=== PATIENT | male | born 1985 | race Caucasian/White ===

== ENCOUNTER 2020-03-10 21:55 | Inpatient (IN) | payer MEDICAID, SELFPAY ==
[~2020-03-10] VITALS: Ht 182.9 cm; Wt 87.3 kg
[2020-03-10 22:28] LABS: BASO # 0.1 10^3/uL (0.0-0.2); BASO % 0.2 % (0.0-1.0); HEMATOCRIT 42.9 % (42.0-52.0); HEMOGLOBIN 14.5 g/dl (13.5-17.5); LYMPH % 4.8 % (24.0-44.0); MEAN CORPUSCULAR HEMOGLOBIN 30.6 pg (27.0-33.0); MEAN CORPUSCULAR HGB CONC 33.8 g/dl (32.0-36.5); MEAN CORPUSCULAR VOLUME 90.5 fl (80.0-96.0); MONO # 1.1 10^3/uL (0.0-0.8); MONO % 4.9 % (0.0-5.0); NEUTROPHILS # 19.2 10^3/uL (1.5-8.5); NEUTROPHILS % 89.5 % (36.0-66.0); PLATELET COUNT, AUTOMATED 240 10^3/uL (150-450); RED BLOOD COUNT 4.74 10^6/uL (4.30-6.10); WHITE BLOOD COUNT 21.5 10^3/uL (4.0-10.0)
[2020-03-10] MEDS ORDERED: ONDANSETRON 4MG/2ML VIAL IV ONE (22:30)
[2020-03-10 22:57] LABS: ALBUMIN 4.7 GM/DL (3.2-5.2); BILIRUBIN,DIRECT 0.3 MG/DL (0.0-0.2); BILIRUBIN,TOTAL 1.3 MG/DL (0.2-1.0); TOTAL PROTEIN 8.1 GM/DL (6.4-8.2)
[2020-03-10] MEDS ORDERED: NS 1,000 ML IV ONE (23:00)
[2020-03-10] MEDS ORDERED: ISOVUE-370 76% 100ML VIAL As Ordered ONE (23:00)
[2020-03-10] MEDS ORDERED: KETOROLAC 30 MG/ML 1ML VIAL IV ONE (23:00)
[2020-03-10] MEDS ORDERED: METOCLOPRAMIDE INJ 10MG/2ML VIAL (J2765 PER 1) IV ONE (23:15)
--- NOTE | 2020-03-10 23:45 | REPVR ---
PROCEDURE INFORMATION: Exam: CT Abdomen And Pelvis With Contrast Exam date and time: 03/10/2020 10:53 PM Age: 34 years old Clinical indication: Vomiting; Additional info: Abd pain with n/v R/O infectious process TECHNIQUE: Imaging protocol: Computed tomography of the abdomen and pelvis with intravenous contrast. Radiation optimization: All CT scans at this facility use at least one of these dose optimization techniques: automated exposure control; mA and/or kV adjustment per patient size (includes targeted exams where dose is matched to clinical indication); or iterative reconstruction. Contrast material: ISO; Contrast volume: 100 ml; Contrast route: INTRAVENOUS (IV); COMPARISON: CT ABD PELVIS WITH CONTRAST 10/08/2015 12:22 PM FINDINGS: Liver: Normal. No mass. Gallbladder and bile ducts: Normal. No calcified stones. No ductal dilation. Pancreas: Normal. No ductal dilation. Spleen: Normal. No splenomegaly. Adrenals: Normal. No mass. Kidneys and ureters: Normal. No hydronephrosis. Stomach and bowel: Diffuse thickening of the colon. No abnormal bowel dilatation. Negative for colonic diverticulitis. Appendix: Appendix is normal. Intraperitoneal space: Unremarkable. No free air. No significant fluid collection. Vasculature: Unremarkable. No abdominal aortic aneurysm. Lymph nodes: Unremarkable. No enlarged lymph nodes. Bladder: Unremarkable as visualized. Reproductive: Prostate is normal in size. Bones/joints: Unremarkable. No acute fracture. Soft tissues: Unremarkable. IMPRESSION: Findings consistent with infectious or inflammatory pancolitis. Electronically signed by: Ruma Payne On 03/10/2020 23:44:21 PM
[2020-03-11] MEDS ORDERED: metroNIDAZOLE 500 MG in IV 1 EA IV ONE (01:30)
[2020-03-11] MEDS ORDERED: methylPREDNISolone 125MG 2ML VIAL IV ONE (01:30)
[2020-03-11] MEDS ORDERED: CIPROFLOXACIN 400 MG in IV 1 EA IV ONE (01:30)
[2020-03-11] MEDS ORDERED: ONDANSETRON 4MG/2ML VIAL IV ONE (02:00)
[2020-03-11] MEDS: NS 1,000 ML IV SCH ×2 (02:30→04:00)
[2020-03-11] MEDS ORDERED: PROMETHAZINE INJ 25 MG/ML VIAL (J2550) IV ONE (02:45)
[2020-03-11] MEDS ORDERED: ONDANSETRON 4MG/2ML VIAL IV PRN ×2 (02:45→08:00)
--- NOTE | 2020-03-11 04:10 | HPEPDOC ---
[facility] Medical History & Physical Date of Admission Mar 11, 2020 Date of Service: Mar 11, 2020 Attending Physician: WILI ESCAMILLA MD History and Physical TIME OF SERVICE: 2:55 AM CHIEF COMPLAINT: Abdominal pain HISTORY OF PRESENT ILLNESS: This is a 34-year-old gentleman who presents with complaints of 10 out of 10 at its worst lower throbbing abdominal pain. He thought he was constipated so he went to the bathroom, but he didn't have a bowel movement but shortly thereafter he began profusely vomiting every 20-30 minutes. He thinks he vomited at least 12 times, and denies having any blood mixed with the vomit. Anytime he tried to drink water or any other liquids. He vomited. He had a similar episode about one year ago which she was told was due to a virus. Upon further questioning, he admits to eating at [email or web address] earlier on in the day. After receiving Toradol, Reglan, Solu-Medrol, ciprofloxacin, Flagyl, ondansetron, and Phenergan in the ER, his abdominal pain resolved. REVIEW OF SYSTEMS: 12 point review of systems negative except as listed in HPI PAST MEDICAL/ SURGICAL HISTORY: None (denies having a history of ulcerative colitis) SOCIAL HISTORY: He smokes. He drinks alcoholic beverages around 2 times per week FAMILY HISTORY: None ALLERGIES: Please see below. HOME MEDICATIONS: Please see below. PHYSICAL EXAMINATION: Vital Signs Date Time Temp Pulse Resp B/P (MAP) Pulse Ox O2 Delivery O2 Flow Rate FiO2 03/10/20 21:56 97.3 74 18 122/92 (102) 100 Room Air GEN: well-nourished / well developed/ NAD INTEGUMENT: Slightly flushed/ not jaundice HEENT: NCAT CVS: RRR/NMRG LUNGS: able to speak full sentences without stopping to take a breath / lungs are clear to auscultation bilaterally on room air ABDOMEN: soft & not tender with palpation MSK/EXTREMITIES: range of motion intact in all 4 extremities NEURO: CN 2-12 are grossly intact / speech is not dysarthric PSYCH: alert and oriented to person place and time/ able to understand and follow all commands LABORATORY DATA: 03/10/20 22:16 Immature Granulocyte % (Auto) 0.6, Neutrophils (%) (Auto) 89.5H, Lymphocytes (%) (Auto) 4.8L, Monocytes (%) (Auto) 4.9, Eosinophils (%) (Auto) 0.0, Basophils (%) (Auto) 0.2, Neutrophils # (Auto) 19.2H, Lymphocytes # (Auto) 1.0L, Monocytes # (Auto) 1.1H, Eosinophils # (Auto) 0.0, Basophils # (Auto) 0.1, Nucleated Red Blood Cells % (auto) 0.0, Total Bilirubin 1.3H, Direct Bilirubin 0.3H, Aspartate Amino Transf (AST/SGOT) 17, Alanine Aminotransferase (ALT/SGPT) 17, Alkaline Phosphatase 46, Total Protein 8.1, Albumin 4.7, Albumin/Globulin Ratio 1.4, Lipase 53L 03/10/20 22:27: POC Glucose (Misc Panel) 119H, POC Sodium (Misc Panel) 143, POC Potassium (Misc Panel) 3.4L, POC Chloride (Misc Panel) 103, POC Total CO2 (Misc Panel) 20.0L, POC Blood Urea Nitrogen (Misc Panel 16, POC Ionized Calcium (Misc Panel) 4.2L, POC Creatinine (Misc Panel) 1.0, POC Hematocrit (Misc Panel) 46.0 IMAGING: CT abdomen and pelvis "IMPRESSION: Findings consistent with infectious or in flammatory pancolitis. " MICROBIOLOGY: Please see below. ASSESSMENT: Mr. Lobato is a 34-year-old with no past medical history will be admitted for management of intractable vomiting associated with pancolitis. PLAN: 1. Intractable nausea and vomiting Possibly due to gastroenteritis Plan: Admit to medical floor/Zofran when necessary/Toradol for pain 2. Infectious pancolitis He denies having any diarrhea He has leukocytosis. Plan: f/u blood cx / c/w metronidazole 3. Mild Hypokalemia 2/2 vomiting Plan: KCl w NS / f/u Mag DVT PROPHYLAXIS: SCDs DISPOSITION: likely home after more than 2 midnight's stay Home Medications Scheduled Pantoprazole Sodium (Pantoprazole Sodium) 40 Mg Tablet.dr, 1 TAB PO DAILY Scheduled PRN Ondansetron HCl (Zofran) 4 Mg Tablet, 4 MG PO Q6-8HP PRN for nausea/vomiting Allergies Coded Allergies: No Known Allergies (Unverified , 03/10/20) A-FIB/CHADSVASC A-FIB History Current/History of A-Fib/PAF?: No Current PO Anticoag Therapy: No WILI ESCAMILLA MD Mar 11, 2020 04:10
[2020-03-11] MEDS ORDERED: KETOROLAC 30 MG/ML 1ML VIAL IV PRN (04:15)
[2020-03-11 04:16] VITALS: BP 153/86
[2020-03-11] MEDS: NS IV SCH ×2 (04:34→10:52)
[2020-03-11] MEDS: POTASSIUM CHLORIDE IV SCH ×2 (04:34→10:52)
[2020-03-11] MEDS ORDERED: metroNIDAZOLE 500 MG in IV 1 EA IV SCH (10:00)
[2020-03-11] MEDS ORDERED: CIPROFLOXACIN 400 MG in IV 1 EA IV SCH (14:00)
--- NOTE | 2020-03-11 14:18 | IPNPDOC ---
Text Note Date of Service The patient was seen on 03/11/20. NOTE SUBJECTIVE: Feels better no abdominal pain, no diarrhea, vomiting has stopped, Low grade fever on admission. advanced diet to clear liquids which he tolerated. VITALS: As below GEN: well-nourished / well developed/ NAD INTEGUMENT: Slightly flushed/ not jaundice HEENT: NCAT CVS: RRR/NMRG LUNGS: able to speak full sentences without stopping to take a breath / lungs are clear to auscultation bilaterally on room air ABDOMEN: soft & not tender with palpation MSK/EXTREMITIES: range of motion intact in all 4 extremities NEURO: CN 2-12 are grossly intact / speech is not dysarthric PSYCH: alert and oriented to person place and time/ able to understand and follow all commands LABS and RADIOLOGY: reviewed ASSESSMENT AND PLAN: Mr. Lobato is a 34-year-old with no past medical history will be admitted for management of intractable vomiting associated with pancolitis. CT shows pancolitis infectious vs inflammatory Intractable nausea and vomiting Possibly due to gastroenteritis Zofran when necessary/Toradol for pain Infectious pancolitis He denies having any diarrhea He has leukocytosis. c/w metronidazole and cipro Hypokalemia 2/2 vomiting Plan: KCl w NS DVT PROPHYLAXIS: SCDs VS,Fishbone, I+O VS, Fishbone, I+O Laboratory Tests 03/10/20 22:16 Vital Signs Date Time Temp Pulse Resp B/P (MAP) Pulse Ox O2 Delivery O2 Flow Rate FiO2 03/11/20 04:16 100.1 62 20 153/86 (108) 97 Room Air I&O- Last 24 Hours up to 6 AM 03/11/20 05:59 Intake Total 1375 ml Output Total 0 ml Balance 1375 ml Discharge Summary General Date of Admission Mar 11, 2020 at 02:35 Date of Discharge 03/11/20 Discharge Summary PROCEDURES PERFORMED DURING STAY: [None]. DISCHARGE DIAGNOSES: Infective Colitis Hypokalemia COMPLICATIONS/CHIEF COMPLAINT: Intractable Vomiting. HOSPITAL COURSE: Mr. Lobato is a 34-year-old with no past medical history was admitted for management of intractable vomiting associated with crampy abdominal pain. He was found to have pancolitis inthe CT abdomen felt to be infectious is nature due to his elevated WBC and low grade fever. he was started on cipro and flagyl and symptomatic management iwth IVF, antiemetics. His symptoms were much improved and he was started on oral liquids which he tolerated. Juan Carlos insited on leaving today though his WBC was elevated and he had low grade fever in the morning. I tried to explain why he needed to stay but he refused and signed out AMA. I have sent scripts for antibiotics to his pharmacy. CT shows pancolitis infectious vs inflammatory DISCHARGE MEDICATIONS: Please see below. ALLERGIES: Please see below. PHYSICAL EXAMINATION ON DISCHARGE: please see above. LABORATORY DATA: Please see below. IMAGING: CT abdomen and pelvis with contrast. :Liver: Normal. No mass. Gallbladder and bile ducts: Normal. No calcified stones. No ductal dilation. Pancreas: Normal. No ductal dilation. Spleen: Normal. No splenomegaly. Adrenals: Normal. No mass. Kidneys and ureters: Normal. No hydronephrosis. Stomach and bowel: Diffuse thickening of the colon. No abnormal bowel dilatation. Negative for colonic diverticulitis. Appendix: Appendix is normal. Intraperitoneal space: Unremarkable. No free air. No significant fluid collection. Vasculature: Unremarkable. No abdominal aortic aneurysm. Lymph nodes: Unremarkable. No enlarged lymph nodes. Bladder: Unremarkable as visualized. Reproductive: Prostate is normal in size. Bones/joints: Unremarkable. No acute fracture. Soft tissues: Unremarkable. IMPRESSION: Findings consistent with infectious or inflammatory pancolitis. ACTIVITY: [As tolerated]. DIET: Full liquids to Low residue. DISPOSITION: 01 Home, Self-Care. Left AMA DISCHARGE INSTRUCTIONS: Follow up with PMD Return to ED if symptoms return Complete course of antibiotics. DISCHARGE CONDITION: [Stable]. TIME SPENT ON DISCHARGE: 35 minutes. Vital Signs/I&Os Vital Signs Date Time Temp Pulse Resp B/P (MAP) Pulse Ox O2 Delivery O2 Flow Rate FiO2 03/11/20 04:16 100.1 62 20 153/86 (108) 97 Room Air I&O- Last 24 Hours up to 6 AM 03/12/20 07:00 Intake Total 2420 ml Output Total 450 ml Balance 1970 ml Laboratory Data Labs 24H Laboratory Tests 2 03/11/20 06:25: Magnesium Level 2.1 Microbiology Microbiology 03/11/20 Blood Culture, Received Pending Discharge Medications Scheduled Ciprofloxacin HCl (Cipro) 500 Mg Tablet, 1 TAB PO BID Metronidazole (Flagyl) 500 Mg Tablet, 500 MG PO Q8H FOR 10 DAYS Allergies Coded Allergies: No Known Allergies (Unverified , 03/10/20) MARCO ANTONIO CHEUNG MD Mar 11, 2020 07:51
[2020-03-11] MEDS ORDERED: CIPR-249 PO (14:20)
[2020-03-11] MEDS ORDERED: FLAG500T PO (14:20)
[2020-03-12] MEDS ORDERED: CIPR500T3 PO (10:55)
[2020-03-12] MEDS ORDERED: FLAG500T PO (10:55)
[2020-03-16] MEDS ORDERED: PANT40TA29 PO (12:42)
== END 2020-03-11 15:22 | disposition left against medical advice (07) | DRG 245 ==
LOC: M ED 21:55 → M ED INP 03-11 02:35 → ENRESERV 03-11 03:39 → M MS5PR 03-11 04:06
PROVIDERS: ADMIT Internal Medicine; ATTEND Internal Medicine
DX: K51.00 Ulcerative (chronic) pancolitis without complications (principal); E87.6 Hypokalemia

== ENCOUNTER 2020-03-12 10:11 | Inpatient (IN) | payer MEDICAID, SELFPAY ==
[~2020-03-12] VITALS: Ht 182.9 cm; Wt 87.3 kg
[~2020-03-12 10:11] MED LIST: CIPR-249 PO; FLAG500T PO
[2020-03-12 10:30] VITALS: BP 142/90
[2020-03-12] MEDS ORDERED: CIPR500T3 PO (10:55)
[2020-03-12] MEDS ORDERED: FLAG500T PO (10:55)
[2020-03-12] MEDS ORDERED: NS 1,000 ML IV ONE (11:00)
[2020-03-12] MEDS: ONDANSETRON 4MG/2ML VIAL IV PRN ×2 (11:17→20:51)
[2020-03-12 11:42] LABS: HEMATOCRIT 37.5 % (42.0-52.0); HEMOGLOBIN 12.6 g/dl (13.5-17.5); MEAN CORPUSCULAR HEMOGLOBIN 31.1 pg (27.0-33.0); MEAN CORPUSCULAR HGB CONC 33.6 g/dl (32.0-36.5); MEAN CORPUSCULAR VOLUME 92.6 fl (80.0-96.0); PLATELET COUNT, AUTOMATED 201 10^3/uL (150-450); RED BLOOD COUNT 4.05 10^6/uL (4.30-6.10); WHITE BLOOD COUNT 13.7 10^3/uL (4.0-10.0)
[2020-03-12] MEDS: PROCHLORPERAZINE 10MG/2ML VIAL (J0780 PER 1) IV PRN (11:59)
[2020-03-12] MEDS: LR 1,000 ML IV SCH ×2 (11:59→18:28)
[2020-03-12 12:00] LABS: ALBUMIN 3.8 GM/DL (3.2-5.2); ALT/SGPT 16 U/L (12-78); BILIRUBIN,TOTAL 0.8 MG/DL (0.2-1.0); BLOOD UREA NITROGEN 16 MG/DL (7-18); CALCIUM LEVEL 8.3 MG/DL (8.5-10.1); CARBON DIOXIDE LEVEL 21 MEQ/L (21-32); CHLORIDE LEVEL 111 MEQ/L (98-107); CREATININE FOR GFR 1.19 MG/DL (0.70-1.30); GLOMERULAR FILTRATION RATE > 60.0 (>60); GLUCOSE, FASTING 116 MG/DL (70-100); SODIUM LEVEL 144 MEQ/L (136-145); TOTAL PROTEIN 6.8 GM/DL (6.4-8.2)
[2020-03-12] MEDS ORDERED: MORPHINE 4 MG/ML 1ML VIAL/SYRINGE (J2270) IV ONE (13:00)
[2020-03-12 15:22] VITALS: BP 134/86
--- NOTE | 2020-03-12 15:48 | HPEPDOC ---
General Date of Admission Mar 12, 2020 at 10:20 Date of Service: Mar 12, 2020 Chief Complaint The patient is a 34-year-old male admitted with a reason for visit of Colitis. Source: Patient History of Present Illness 34 year old male with no past medical history was admitted on 03/11/20 [employer] for intractable vomiting , nausea and abdominal pain. He was found to have pancolitis in the CT scan which was felt to be infectious rather than inflammatory due to his elevated WBC and low grade fever on admission. Patient was managed with iv antibiotics, ivf , antiemetics. He felt much better int eh afternoon and was able to tolerate clear liquids and then insisted on going home and signed out AMA. This mornign i got a call from his father that he was again having severe abdominal pain and he could not keep the antibiotics down. I arranged for the patient to be directly admitted. Patient reports that he was fine last night he took his antibiotics and a some soup and crackers and was fine overnight. This morning he took his antibiotics and was going to take some more soup and crackers but his abdominal pain again started. It was severe crampy in nature 10/10 in intensity when the cramps were comeing and about 5/10 in between the cramps all over the abdomen. He could not lay down still . He was tossing and turning in bed. He then stuck his finger into his throat to stop the pain and then he started vomiting and retching. He denied any diarrhea. He was readmitted for acute infectious colitis. Home Medications Scheduled Ciprofloxacin HCl (Ciprofloxacin HCl) 500 Mg Tablet, 500 MG PO BID, (Reported) FILLED 03/11/20 FOR 7 DAYS Metronidazole (Flagyl) 500 Mg Tablet, 500 MG PO Q8H, (Reported) FILLED 03/11/20 FOR 10 DAYS Allergies Coded Allergies: No Known Allergies (Unverified , 03/10/20) Past Medical History Medical History Denies Family History Significant Family History: No pertinent family hx discussed with patient Social History * Smoker: current smoker Alcohol: occationally Drugs: marijuana A-FIB/CHADSVASC A-FIB History Current/History of A-Fib/PAF?: No Review of Systems Constitutional: Denies: Chills, Fever, Night Sweats Eyes: Denies: Pain, Vision change ENT: Denies: Head Aches, Ear Pain, Dysphagia Skin: Denies: Rash, Lesions, Breakdown Pulmonary: Denies: Dyspnea, Cough Cardiovascular: Denies: Chest Pain, Palpitations, Orthopnea, Paroxysmal Noc. Dyspnea, Lt Headedness Gastrointestinal: Reports: Nausea, Vomiting, Abdominal Pain Genitourinary: Denies: Dysuria, Frequency, Incontinence, Retention Hematologic: Denies: Bruising, Bleeding Excessively Musculoskeletal: Denies: Neck Pain, Back Pain, Joint Pain, Muscle Pain, Spasms Physical Examination General Exam: Positive: Alert, Cooperative, Mild Distress Eye Exam: Positive: PERRLA, Conjunctiva & lids normal, EOMI; Negative: Sclera icteric ENT Exam: Positive: Atraumatic, Mucous membr. moist/pink, Pharynx Normal Neck Exam: Positive: Supple; Negative: JVD, thyromegaly Chest Exam: Positive: Clear to auscultation, Normal air movement Heart Exam: Positive: Rate Normal, Regular Rhythm, Normal S1, Normal S2; Negative: Murmurs, Rubs Abdomen Exam: Positive: BS Hypoactive, Soft, Tenderness (in all the quadrants.), Other (no guarding or rigidity) Extremity Exam: Positive: Normal pulses; Negative: Clubbing, Cyanosis, Edema Skin Exam: Positive: Nl turgor and temperature; Negative: Breakdown, Lesion Neuro Exam: Positive: Normal Speech, Strength at 5/5 X4 ext, Normal Tone Vital Signs Vital Signs Date Time Temp Pulse Resp B/P (MAP) Pulse Ox O2 Delivery O2 Flow Rate FiO2 03/12/20 13:36 16 03/12/20 10:30 98.2 63 142/90 (107) 98 Room Air Laboratory Data Labs 24H Laboratory Tests 2 03/12/20 11:24: Nucleated Red Blood Cells % (auto) 0.0, Anion Gap 12, Glomerular Filtration Rate > 60.0, Calcium Level 8.3L, Total Bilirubin 0.8, Aspartate Amino Transf (AST/SGOT) 13, Alanine Aminotransferase (ALT/SGPT) 16, Alkaline Phosphatase 35L, Total Protein 6.8, Albumin 3.8, Albumin/Globulin Ratio 1.3 CBC/BMP Laboratory Tests 03/12/20 11:24 Assessment/Plan 34 year old male with no past medical history was admitted on 03/11/20 [employer] for intractable vomiting , nausea and abdominal pain. He was found to have pancolitis in the CT scan which was felt to be infectious rather than inflammatory due to his elevated WBC and low grade fever on admission. Patient was managed with iv antibiotics, ivf , antiemetics. He felt much better int eh afternoon and was able to tolerate clear liquids and then insisted on going home and signed out AMA. This mornign i got a call from his father that he was again having severe abdominal pain and he could not keep the antibiotics down. I arranged for the patient to be directly admitted. Patient reports that he was fine last night he took his antibiotics and a some soup and crackers and was fin e overnight. This morning he took his antibiotics and was going to take some more soup and crackers but his abdominal pain again started. It was severe crampy in nature 10/10 in intensity when the cramps were comeing and about 5/10 in between the cramps all over the abdomen. He could not lay down still . He was tossing and turning in bed. He then stuck his finger into his throat to stop the pain and then he started vomiting and retching. He denied any diarrhea. He was readmitted for acute infectious colitis. Infectious colitis cipro and flagyl IVF, clear liq, zofran, compazine abdominal xray Hypokalemia will give ringers IV potassium Plan / VTE VTE Prophylaxis Ordered?: Yes MARCO ANTONIO CHEUNG MD Mar 12, 2020 15:48
[2020-03-12] MEDS ORDERED: KCL 10MEQ/100ML SWI (KRUN) 10 MEQ in IV 1 EA IV ONE (16:00)
--- NOTE | 2020-03-12 16:29 | REP ---
Clinical: Abdominal pain. Technique: Two supine views of the abdomen and pelvis. Findings: Bowel gas pattern is nonspecific and without obstruction or perforation. No organomegaly. No abnormal calcifications. Skeletal structures are intact. Impression: Nonspecific abdominal radiographs. Electronically Signed by Daniel Marie MD 03/12/2020 04:21 P
[2020-03-12] MEDS: metroNIDAZOLE 500 MG in IV 1 EA IV SCH (17:26)
[2020-03-12] MEDS: CIPROFLOXACIN 400 MG in IV 1 EA IV SCH (20:19)
[2020-03-12] MEDS: MORPHINE 2 MG/ML 1ML VIAL (J2270) IV PRN (20:51)
[2020-03-12 21:09] VITALS: BP 149/94
[2020-03-13] MEDS: metroNIDAZOLE 500 MG in IV 1 EA IV SCH ×4 (01:09→23:57)
[2020-03-13] MEDS: LR 1,000 ML IV SCH ×4 (04:08→20:29)
[2020-03-13 06:00] VITALS: BP 123/76
[2020-03-13 07:00] LABS: BASO # 0.1 10^3/uL (0.0-0.2); BASO % 0.4 % (0.0-1.0); EOS # 0.1 10^3/uL (0.0-0.5); EOS % 0.6 % (0.0-3.0); HEMATOCRIT 36.4 % (42.0-52.0); HEMOGLOBIN 11.9 g/dl (13.5-17.5); LYMPH # 4.1 10^3/uL (1.5-5.0); LYMPH % 32.5 % (24.0-44.0); MEAN CORPUSCULAR HEMOGLOBIN 30.4 pg (27.0-33.0); MEAN CORPUSCULAR HGB CONC 32.7 g/dl (32.0-36.5); MEAN CORPUSCULAR VOLUME 93.1 fl (80.0-96.0); MONO # 1.2 10^3/uL (0.0-0.8); MONO % 9.6 % (0.0-5.0); NEUTROPHILS # 7.1 10^3/uL (1.5-8.5); NEUTROPHILS % 56.5 % (36.0-66.0); PLATELET COUNT, AUTOMATED 179 10^3/uL (150-450); RED BLOOD COUNT 3.91 10^6/uL (4.30-6.10); WHITE BLOOD COUNT 12.6 10^3/uL (4.0-10.0)
[2020-03-13 07:30] LABS: BLOOD UREA NITROGEN 7 MG/DL (7-18); CALCIUM LEVEL 8.2 MG/DL (8.5-10.1); CARBON DIOXIDE LEVEL 25 MEQ/L (21-32); CHLORIDE LEVEL 107 MEQ/L (98-107); CREATININE FOR GFR 0.87 MG/DL (0.70-1.30); GLOMERULAR FILTRATION RATE > 60.0 (>60); GLUCOSE, FASTING 94 MG/DL (70-100); POTASSIUM SERUM 3.5 MEQ/L (3.5-5.1); SODIUM LEVEL 138 MEQ/L (136-145)
[2020-03-13] MEDS: MORPHINE 2 MG/ML 1ML VIAL (J2270) IV PRN ×2 (07:59→17:09)
[2020-03-13] MEDS: ONDANSETRON 4MG/2ML VIAL IV PRN ×2 (07:59→18:20)
[2020-03-13] MEDS: CIPROFLOXACIN 400 MG in IV 1 EA IV SCH ×2 (09:26→19:58)
[2020-03-13] MEDS: PROCHLORPERAZINE 10MG/2ML VIAL (J0780 PER 1) IV PRN ×2 (09:26→17:09)
[2020-03-13 15:16] VITALS: BP 124/77
--- NOTE | 2020-03-13 15:22 | IPNPDOC ---
Subjective Date Seen The patient was seen on 03/13/20. Subjective Chief Complaint/HPI Was feeling good overnight then again inthe morning started having abdominal pain and nausea. Objective Physical Examination General Exam: Positive: Alert, Cooperative, No Acute Distress Eye Exam: Positive: PERRLA, Conjunctiva & lids normal, EOMI; Negative: Sclera icteric ENT Exam: Positive: Atraumatic, Mucous membr. moist/pink, Pharynx Normal Neck Exam: Positive: Supple; Negative: JVD, thyromegaly Chest Exam: Positive: Clear to auscultation, Normal air movement Heart Exam: Positive: Rate Normal, Regular Rhythm, Normal S1, Normal S2; Negative: Murmurs, Rubs Abdomen Exam: Positive: Normal bowel sounds, Soft, Tenderness (in all the quadrants.), Other (no guarding or rigidity) Extremity Exam: Positive: Normal pulses; Negative: Clubbing, Cyanosis, Edema Skin Exam: Positive: Nl turgor and temperature; Negative: Breakdown, Lesion Neuro Exam: Positive: Normal Speech, Strength at 5/5 X4 ext, Normal Tone Assessment /Plan Assessment 34 year old male with no past medical history was admitted on 03/11/20 [employer] for intractable vomiting , nausea and abdominal pain. He was found to have pancolitis in the CT scan which was felt to be infectious rather than inflammatory due to his elevated WBC and low grade fever on admission. Patient was managed with iv antibiotics, ivf , antiemetics. He felt much better int eh afternoon and was able to tolerate clear liquids and then insisted on going home and signed out AMA. This mornign i got a call from his father that he was again having severe abdominal pain and he could not keep the antibiotics down. I arranged for the patient to be directly admitted. Patient reports that he was fine last night he took his antibiotics and a some soup and crackers and was fine overnight. This morning he took his antibiotics and was going to take some more soup and crackers but his abdominal pain again started. It was severe crampy in nature 10/10 in intensity when the cramps were coming and about 5/10 in between the cramps all over the abdomen. He could not lay down still . He was tossing and turning in bed. He then stuck his finger into his throat to stop the pain and then he started vomiting and retching. He denied any diarrhea. He was readmitted for acute infectious colitis. Infectious colitis cipro and flagyl IVF, clear liq, zofran, compazine abdominal xray no acute abnormalities. Hypokalemia replaced. Plan/VTE VTE Prophylaxis Ordered?: Yes VS, I&O, 24H, Fishbone Vital Signs/I&O Vital Signs Date Time Temp Pulse Resp B/P (MAP) Pulse Ox O2 Delivery O2 Flow Rate FiO2 03/13/20 06:00 98.4 70 17 123/76 (92) 99 Room Air I&O- Last 24 Hours up to 6 AM 03/13/20 05:59 Intake Total 2980 ml Output Total 3500 ml Balance -520 ml Laboratory Data 24H LABS Laboratory Tests 2 03/12/20 11:24: Nucleated Red Blood Cells % (auto) 0.0, Anion Gap 12, Glomerular Filtration Rate > 60.0, Calcium Level 8.3L, Total Bilirubin 0.8, Aspartate Amino Transf (AST/SGOT) 13, Alanine Aminotransferase (ALT/SGPT) 16, Alkaline Phosphatase 35L, Total Protein 6.8, Albumin 3.8, Albumin/Globulin Ratio 1.3 03/13/20 06:32: Nucleated Red Blood Cells % (auto) 0.0, Anion Gap 6L, Glomerular Filtration Rate > 60.0, Calcium Level 8.2L, Immature Granulocyte % (Auto) 0.4, Neutrophils (%) (Auto) 56.5, Lymphocytes (%) (Auto) 32.5, Monocytes (%) (Auto) 9.6H, Eosinophils (%) (Auto) 0.6, Basophils (%) (Auto) 0.4, Neutrophils # (Auto) 7.1, Lymphocytes # (Auto) 4.1, Monocytes # (Auto) 1.2H, Eosinophils # (Auto) 0.1, Basophils # (Auto) 0.1 CBC/BMP Laboratory Tests 03/12/20 11:24 03/13/20 06:32 MARCO ANTONIO CHEUNG MD Mar 13, 2020 07:42
[2020-03-13 22:00] VITALS: BP 143/89
[2020-03-14] MEDS: LR 1,000 ML IV SCH ×4 (05:00→22:05)
[2020-03-14 06:00] VITALS: BP 134/83
[2020-03-14] MEDS ORDERED: CIPROFLOXACIN 500MG TABLET PO SCH (06:00)
[2020-03-14 06:11] LABS: BASO % 0.5 % (0.0-1.0); EOS # 0.1 10^3/uL (0.0-0.5); EOS % 1.3 % (0.0-3.0); HEMATOCRIT 36.1 % (42.0-52.0); LYMPH # 3.7 10^3/uL (1.5-5.0); LYMPH % 42.7 % (24.0-44.0); MEAN CORPUSCULAR HEMOGLOBIN 30.8 pg (27.0-33.0); MEAN CORPUSCULAR HGB CONC 33.2 g/dl (32.0-36.5); MEAN CORPUSCULAR VOLUME 92.6 fl (80.0-96.0); MONO # 0.8 10^3/uL (0.0-0.8); MONO % 9.1 % (0.0-5.0); NEUTROPHILS # 4.1 10^3/uL (1.5-8.5); NEUTROPHILS % 46.3 % (36.0-66.0); PLATELET COUNT, AUTOMATED 171 10^3/uL (150-450); WHITE BLOOD COUNT 8.8 10^3/uL (4.0-10.0)
[2020-03-14 06:37] LABS: BLOOD UREA NITROGEN 5 MG/DL (7-18); CALCIUM LEVEL 8.1 MG/DL (8.5-10.1); CARBON DIOXIDE LEVEL 26 MEQ/L (21-32); CHLORIDE LEVEL 106 MEQ/L (98-107); CREATININE FOR GFR 0.86 MG/DL (0.70-1.30); GLOMERULAR FILTRATION RATE > 60.0 (>60); GLUCOSE, FASTING 96 MG/DL (70-100); POTASSIUM SERUM 3.3 MEQ/L (3.5-5.1); SODIUM LEVEL 138 MEQ/L (136-145)
[2020-03-14] MEDS: metroNIDAZOLE 500 MG in IV 1 EA IV SCH ×3 (07:36→22:05)
[2020-03-14] MEDS ORDERED: KCL 10MEQ/100ML SWI (KRUN) 10 MEQ in IV 1 EA IV ONE (08:30)
[2020-03-14] MEDS: ONDANSETRON 4MG/2ML VIAL IV PRN ×2 (11:25→18:43)
[2020-03-14] MEDS: MORPHINE 2 MG/ML 1ML VIAL (J2270) IV PRN (11:44)
[2020-03-14 14:00] VITALS: BP 163/91
[2020-03-14] MEDS ORDERED: metroNIDAZOLE (FLAGYL) 500 MG TAB PO SCH (14:00)
[2020-03-14] MEDS ORDERED: HYDROMORPHONE HCL 0.5 MG/ 0.5 ML SYRINGE (J1170 PER 1) IV PRN (14:00)
[2020-03-14] MEDS: PANTOPRAZOLE 40MG VIAL (C9113 PER 1) IV SCH ×2 (14:23→20:32)
[2020-03-14] MEDS: HYDROMORPHONE HCL 0.5 MG/ 0.5 ML SYRINGE (J1170 PER 1) IV PRN (14:23)
--- NOTE | 2020-03-14 15:55 | IPNPDOC ---
Subjective Date Seen The patient was seen on 03/14/20. Subjective Chief Complaint/HPI In the morning patient was feeling well his abdominal pain was gone, no nausea or vomiting. So i advanced his diet to full liquids and changed IV to oral antibiotics. After taking a few bites of full liquid lunch he started again having severe abdominal pain located in the epigastrium, nausea, dry heaves. He received, zofran, compazine, morphine without any relief. I went back to see the patient. He was sitting and standing could'nt lay still, constantly shaking his legs very anxious. He is demanding to see a GI . He is fixated that something is going wrong in his stomach. Nurses reported that his family called (his father and a cousin from [place] who pataitnt said was a doctor) and they were very rude to the staff demanding a COVID test though he has not travelled and has no respiratory symptoms. But they are fixated that this is all due to COVID. Patient has h/o marijuana use. He claims he last used it on 03/10/20. This patient had previously signed out AMA on March 11 then was back in the hospital with same symptoms. Antibiotics changed back to IV. Started on IV pantoprazole, Will get abdominal xray. Surgery consult. Objective Physical Examination General Exam: Positive: Alert, Cooperative, Mild Distress Eye Exam: Positive: PERRLA, Conjunctiva & lids normal, EOMI; Negative: Sclera icteric ENT Exam: Positive: Atraumatic, Mucous membr. moist/pink, Pharynx Normal Neck Exam: Positive: Supple; Negative: JVD, thyromegaly Chest Exam: Positive: Clear to auscultation, Normal air movement Heart Exam: Positive: Rate Normal, Regular Rhythm, Normal S1, Normal S2; Negative: Murmurs, Rubs Abdomen Exam: Positive: BS Hypoactive, Soft, Tenderness (in the epigastrium), Other (no guarding or rigidity) Extremity Exam: Positive: Normal pulses; Negative: Clubbing, Cyanosis, Edema Skin Exam: Positive: Nl turgor and temperature; Negative: Breakdown, Lesion Neuro Exam: Positive: Normal Speech, Strength at 5/5 X4 ext, Normal Tone Assessment /Plan Assessment 34 year old male with no past medical history was 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 He was found to have pancolitis in the CT scan which was felt to be infectious rather than inflammatory due to his elevated WBC and low grade fever on admission. Patient was managed with iv antibiotics, ivf , antiemetics. He felt much better int eh afternoon and was able to tolerate clear liquids and then insisted on going home and signed out AMA. This mornign i got a call from his father that he was again having severe abdominal pain and he could not keep the antibiotics down. I arranged for the patient to be directly admitted. Patient reports that he was fine last night he took his antibiotics and a some soup and crackers and was fin e overnight. This morning he took his antibiotics and was going to take some more soup and crackers but his abdominal pain again started. It was severe crampy in nature 10/10 in intensity when the cramps were coming and about 5/10 in between the cramps all over the abdomen. He could not lay down still . He was tossing and turning in bed. He then stuck his finger into his throat to stop the pain and then he started vomiting and retching. He denied any diarrhea. He was readmitted for acute infectious colitis. Infectious colitis Cipro and flagyl IV IVF, clear liq, zofran, compazine says morphine is not helping. abdominal xray no acute abnormalities. pain control with dilaudid. ?Gastritis will start on pantoprazole. Hypokalemia replaced. Plan/VTE VTE Prophylaxis Ordered?: Yes VS, I&O, 24H, Fishbone Vital Signs/I&O Vital Signs Date Time Temp Pulse Resp B/P (MAP) Pulse Ox O2 Delivery O2 Flow Rate FiO2 03/14/20 14:33 18 03/14/20 14:00 98.8 86 163/91 (115) 97 Room Air I&O- Last 24 Hours up to 6 AM 03/14/20 06:00 Intake Total 1950 ml Output Total 6325 ml Balance -4375 ml Laboratory Data 24H LABS Laboratory Tests 2 03/14/20 05:16: Immature Granulocyte % (Auto) 0.1, Neutrophils (%) (Auto) 46.3, Lymphocytes (%) (Auto) 42.7, Monocytes (%) (Auto) 9.1H, Eosinophils (%) (Auto) 1.3, Basophils (%) (Auto) 0.5, Neutrophils # (Auto) 4.1, Lymphocytes # (Auto) 3.7, Monocytes # (Auto) 0.8, Eosinophils # (Auto) 0.1, Basophils # (Auto) 0.0, Nucleated Red Blood Cells % (auto) 0.0, Anion Gap 6L, Glomerular Filtration Rate > 60.0, Calcium Level 8.1L CBC/BMP Laboratory Tests 03/14/20 05:16 MARCO ANTONIO CHEUNG MD Mar 14, 2020 15:55
[2020-03-14] MEDS: CIPROFLOXACIN 400 MG in IV 1 EA IV SCH (20:32)
[2020-03-14 22:00] VITALS: BP 134/65
[2020-03-14 22:24] LABS: AMPHETAMINES LEVEL URINE NEGATIVE (NEGATIVE); BARBITURATES URINE NEGATIVE (NEGATIVE); BENZODIAZEPINES URINE NEGATIVE (NEGATIVE); CANNABINOIDS URINE POSITIVE (NEGATIVE); COCAINE METABOLITE URINE NEGATIVE (NEGATIVE); METHADONE URINE NEGATIVE (NEGATIVE); OPIATES URINE POSITIVE (NEGATIVE); PHENCYCLIDINE URINE NEGATIVE (NEGATIVE)
[2020-03-15] MEDS: LR 1,000 ML IV SCH ×3 (05:13→20:48)
[2020-03-15] MEDS: metroNIDAZOLE 500 MG in IV 1 EA IV SCH ×3 (05:13→22:32)
[2020-03-15 06:00] VITALS: BP 141/88
[2020-03-15 07:09] LABS: BASO % 0.4 % (0.0-1.0); EOS # 0.2 10^3/uL (0.0-0.5); EOS % 1.9 % (0.0-3.0); HEMOGLOBIN 12.5 g/dl (13.5-17.5); LYMPH # 3.6 10^3/uL (1.5-5.0); LYMPH % 37.9 % (24.0-44.0); MEAN CORPUSCULAR HEMOGLOBIN 30.7 pg (27.0-33.0); MEAN CORPUSCULAR HGB CONC 33.8 g/dl (32.0-36.5); MEAN CORPUSCULAR VOLUME 90.9 fl (80.0-96.0); MONO % 10.1 % (0.0-5.0); NEUTROPHILS # 4.7 10^3/uL (1.5-8.5); NEUTROPHILS % 49.5 % (36.0-66.0); PLATELET COUNT, AUTOMATED 178 10^3/uL (150-450); RED BLOOD COUNT 4.07 10^6/uL (4.30-6.10); WHITE BLOOD COUNT 9.5 10^3/uL (4.0-10.0)
[2020-03-15 07:23] LABS: BLOOD UREA NITROGEN 7 MG/DL (7-18); CALCIUM LEVEL 8.2 MG/DL (8.5-10.1); CARBON DIOXIDE LEVEL 28 MEQ/L (21-32); CHLORIDE LEVEL 105 MEQ/L (98-107); CREATININE FOR GFR 0.98 MG/DL (0.70-1.30); GLOMERULAR FILTRATION RATE > 60.0 (>60); GLUCOSE, FASTING 93 MG/DL (70-100); POTASSIUM SERUM 3.4 MEQ/L (3.5-5.1); SODIUM LEVEL 140 MEQ/L (136-145)
--- NOTE | 2020-03-15 07:27 | REP ---
KUB: REASON: Abdominal pain. COMPARISON: 03/12/2020 FINDINGS: KUB shows the intestinal gas pattern to be nonspecific. The organ silhouettes insofar as delineated are unremarkable. There is no evidence of free intraperitoneal air. IMPRESSION: Nonspecific. No change. Electronically Signed by Bogdan Frost DO 03/15/2020 09:27 A
[2020-03-15] MEDS: CIPROFLOXACIN 400 MG in IV 1 EA IV SCH ×2 (08:23→20:48)
[2020-03-15] MEDS: ONDANSETRON 4MG/2ML VIAL IV PRN ×2 (08:23→14:26)
[2020-03-15] MEDS: PANTOPRAZOLE 40MG VIAL (C9113 PER 1) IV SCH ×2 (08:23→20:48)
--- NOTE | 2020-03-15 08:37 | REPVR ---
PROCEDURE INFORMATION: Exam: US Abdomen, Limited; Right Upper Quadrant Exam date and time: 03/15/2020 8:06 AM Age: 34 years old Clinical indication: Abdominal pain; Acute; Additional info: Epigastric pain TECHNIQUE: Imaging protocol: US abdomen. Real time ultrasound with image documentation. Limited exam focused on the right upper quadrant. COMPARISON: 1. CT ABD/PEL W/IV CONTRAST ONLY 03/10/2020 11:19 PM 2. CR Abdomen, Flat Plate KUB 03/14/2020 2:15:59 PM FINDINGS: Liver: Normal hepatic echotexture. No hepatic mass is imaged. Gallbladder: No abnormal gallbladder dilation. No abnormal gallbladder wall thickening. No gallstones. No pericholecystic fluid. Common bile duct: Common bile duct diameter = 0.2 cm. No intrahepatic or extrahepatic bile duct dilation is imaged. Pancreas: The pancreas is not visualized as it is obscured by overlying structures. Right kidney: Right kidney length = 11 cm. No right hydronephrosis. Normal right renal echotexture. IMPRESSION: 1. Normal sonographic examination of the visualized abdominal right upper quadrant. 2. The pancreas is not visualized. Electronically signed by: Shon Gary On 03/15/2020 08:37:04 AM
[2020-03-15] MEDS: HYDROMORPHONE HCL 0.5 MG/ 0.5 ML SYRINGE (J1170 PER 1) IV PRN ×2 (09:12→16:50)
--- NOTE | 2020-03-15 10:27 | IPNPDOC ---
Subjective Date Seen The patient was seen on 03/15/20. Subjective Chief Complaint/HPI Pain seems better controlled today. Last used pain meds at 7 pm last night. Not retching though still has nausea. Gall bladder US is pending. No fever or chills. Objective Physical Examination General Exam: Positive: Alert, Cooperative, Mild Distress Eye Exam: Positive: PERRLA, Conjunctiva & lids normal, EOMI; Negative: Sclera icteric ENT Exam: Positive: Atraumatic, Mucous membr. moist/pink, Pharynx Normal Neck Exam: Positive: Supple; Negative: JVD, thyromegaly Chest Exam: Positive: Clear to auscultation, Normal air movement Heart Exam: Positive: Rate Normal, Regular Rhythm, Normal S1, Normal S2; Negative: Murmurs, Rubs Abdomen Exam: Positive: Normal bowel sounds, Soft, Tenderness (in the epigastrium), Other (no guarding or rigidity) Extremity Exam: Positive: Normal pulses; Negative: Clubbing, Cyanosis, Edema Skin Exam: Positive: Nl turgor and temperature; Negative: Breakdown, Lesion Neuro Exam: Positive: Normal Speech, Strength at 5/5 X4 ext, Normal Tone Assessment /Plan Assessment 34 year old male with no past medical history was 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 He was found to have pancolitis in the CT scan which was felt to be infectious rather than inflammatory due to his elevated WBC and low grade fever on admission. Patient was managed with iv antibiotics, ivf , antiemetics. He felt much better int eh afternoon and was able to tolerate clear liquids and then insisted on going home and signed out AMA. This mornign i got a call from his father that he was again having severe abdominal pain and he could not keep the antibiotics down. I arranged for the patient to be directly admitted. Patient reports that he was fine last night he took his antibiotics and a some soup and crackers and was fine overnight. This morning he took his antibiotics and was going to take some more soup and crackers but his abdominal pain again started. It was severe crampy in nature 10/10 in intensity when the cramps were coming and about 5/10 in between the cramps all over the abdomen. He could not lay down still . He was tossing and turning in bed. He then stuck his finger into his throat to stop the pain and then he started vomiting and retching. He denied any diarrhea. He was readmitted for acute infectious colitis. Infectious colitis Cipro and flagyl IV IVF, clear liq, zofran, compazine says morphine is not helping. abdominal xray no acute abnormalities. pain control with dilaudid. Will keep on IV meds for now. ?Gastritis will start on pantoprazole. GB Us negative for any acute disease. Hypokalemia replaced. Plan/VTE VTE Prophylaxis Ordered?: Yes VS, I&O, 24H, Fishbone Vital Signs/I&O Vital Signs Date Time Temp Pulse Resp B/P (MAP) Pulse Ox O2 Delivery O2 Flow Rate FiO2 03/15/20 06:00 99.4 56 18 141/88 (105) 96 Room Air I&O- Last 24 Hours up to 6 AM 03/15/20 06:00 Intake Total 810 ml Output Total 2600 ml Balance -1790 ml Laboratory Data 24H LABS Laboratory Tests 2 03/14/20 21:36: Urine Opiates Screen POSITIVEH, Urine Methadone Screen NEGATIVE, Urine Barbiturates Screen NEGATIVE, Urine Phencyclidine Screen NEGATIVE, Urine Amphetamines Screen NEGATIVE, Urine Benzodiazepines Screen NEGATIVE, Urine Safia isak Metabolite Screen NEGATIVE, Urine Cannabinoids Screen POSITIVEH MARCO ANTONIO CHEUNG MD Mar 15, 2020 06:44
[2020-03-15 22:00] VITALS: BP 126/82
[2020-03-16] MEDS: LR 1,000 ML IV SCH ×3 (00:51→15:00)
[2020-03-16] MEDS: HYDROMORPHONE HCL 0.5 MG/ 0.5 ML SYRINGE (J1170 PER 1) IV PRN (01:25)
[2020-03-16] MEDS: metroNIDAZOLE 500 MG in IV 1 EA IV SCH ×2 (05:17→13:48)
[2020-03-16 06:00] VITALS: BP 131/86
[2020-03-16 07:00] LABS: BASO % 0.4 % (0.0-1.0); EOS # 0.2 10^3/uL (0.0-0.5); EOS % 2.6 % (0.0-3.0); HEMATOCRIT 39.1 % (42.0-52.0); LYMPH # 3.9 10^3/uL (1.5-5.0); LYMPH % 43.3 % (24.0-44.0); MEAN CORPUSCULAR HEMOGLOBIN 30.1 pg (27.0-33.0); MEAN CORPUSCULAR HGB CONC 33.2 g/dl (32.0-36.5); MEAN CORPUSCULAR VOLUME 90.5 fl (80.0-96.0); MONO # 0.9 10^3/uL (0.0-0.8); MONO % 9.9 % (0.0-5.0); NEUTROPHILS % 43.6 % (36.0-66.0); PLATELET COUNT, AUTOMATED 189 10^3/uL (150-450); RED BLOOD COUNT 4.32 10^6/uL (4.30-6.10); WHITE BLOOD COUNT 9.1 10^3/uL (4.0-10.0)
[2020-03-16] MEDS ORDERED: MORPHINE 4 MG/ML 1ML VIAL/SYRINGE (J2270) IV PRN (07:15)
[2020-03-16 07:30] LABS: BLOOD UREA NITROGEN 8 MG/DL (7-18); CALCIUM LEVEL 8.7 MG/DL (8.5-10.1); CARBON DIOXIDE LEVEL 27 MEQ/L (21-32); CHLORIDE LEVEL 102 MEQ/L (98-107); CREATININE FOR GFR 1.08 MG/DL (0.70-1.30); GLOMERULAR FILTRATION RATE > 60.0 (>60); GLUCOSE, FASTING 91 MG/DL (70-100); POTASSIUM SERUM 3.4 MEQ/L (3.5-5.1); SODIUM LEVEL 137 MEQ/L (136-145)
--- NOTE | 2020-03-16 08:43 | IPN ---
DATE: 03/15/2020 HISTORY: I saw the patient yesterday in consultation for some epigastric abdominal pain. He was admitted several days earlier with epigastric pain with some recurrent nausea and vomiting. A CT scan in the emergency department had suggested some fairly diffuse thickening of the colon suggesting colitis. His symptoms were not suggestive of colitis and I had raised the issue of possible biliary tract disease. He was scheduled for a gallbladder ultrasound this morning. He reports that today after the ultrasound he had recurrence of some bilious vomiting. Vital signs show that he has had a T-max of 99.4. His pulse is in the 50s and 60s today. Blood pressure is good. Intake and output show that he has had a brisk urine output over the last couple days. He remains on IV fluid, though the volume is unrecorded. PHYSICAL EXAMINATION: The patient is lying quietly on the bed when I entered. He has an emesis bag close by. He reports nausea. Abdomen is flat with bowel sounds present and is nondistended. LABORATORY STUDIES: Show a white count of 9, hemoglobin 12, hematocrit 37 and a platelet count of 178,000. Differential count is normal. Chemistry profile shows his potassium is slightly depressed at 3.4, similar to yesterday, and the other electrolytes are okay. Gallbladder ultrasound this morning was interpreted as normal by the radiologist and I reviewed the films and would agree. IMPRESSION: The patient continues with some upper GI symptoms with some nausea and vomiting. 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 RECOMMENDATIONS: At this point, I have no further recommendations. His CT shows no other serious abdominal findings and the ultrasound was negative. I think the Protonix is reasonable to cover the possibility of gastritis/peptic ulcer disease. I will not plan on following this man regularly, but if issues suggest the need for some sort of surgical intervention, I would be happy to see him again. ZOHRA
[2020-03-16] MEDS: PANTOPRAZOLE 40MG VIAL (C9113 PER 1) IV SCH (09:17)
[2020-03-16] MEDS: CIPROFLOXACIN 400 MG in IV 1 EA IV SCH (09:17)
[2020-03-16] MEDS ORDERED: PANT40TA3 PO (12:42)
[2020-03-16] MEDS ORDERED: FLAG500T PO (12:42)
[2020-03-16] MEDS ORDERED: CIPR500T3 PO (12:42)
[2020-03-16] MEDS: ONDANSETRON 4MG/2ML VIAL IV PRN (13:48)
[2020-03-16 14:00] VITALS: BP 126/81
[2020-03-16] MEDS ORDERED: ZOFR4TAB16 PO (15:55)
--- NOTE | 2020-03-17 07:59 | DS.PDOC ---
Discharge Summary General Date of Admission Mar 12, 2020 at 10:20 Date of Discharge 03/16/20 Discharge Summary PROCEDURES PERFORMED DURING STAY: [None]. DISCHARGE DIAGNOSES: Gastritis Colitis Hypokalemia COMPLICATIONS/CHIEF COMPLAINT: Colitis. 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 He was found to have pancolitis in the CT scan which was felt to be infectious rather than inflammatory due to his elevated WBC and low grade fever on admission. Patient was managed with iv antibiotics, ivf , antiemetics. He felt much better in the afternoon and was able to tolerate clear liquids and then insisted on going home and signed out AMA. He reported that he uses marihuana and last use was on 03/10/20. On 03/12/20 I got a call from his father that he was again having severe abdominal pain and he could not keep the antibiotics down. He was readmitted for acute infectious colitis. On 03/14 he was tolerating oral clear liquids so i changed to oral antibiotics. On advancing the diet to full liquids he started again having severe abdominal pain, nausea, dry heaving so I went back to clears and IV antibiotics started on PPI and consulted Surgery. A GB ultrasound and abdominal Xray did not reveal any abnormalities. He was also give hydromorphine. his pain subsided by that evening and on 03/15 he was tolerating clear liquids well. then his diet was advnced to soft diet, low fat . He tolerated 2 soft diet meals . His antibiotics course was finished and he was discharged home on 03/16 in stable condition. Infectious colitis Finished 6 days of Cipro and flagy tolerating soft diet zofran prn Gastritis will start on pantoprazole. GB Us negative for any acute disease. Hypokalemia replaced. DISCHARGE MEDICATIONS: Please see below. ALLERGIES: Please see below. PHYSICAL EXAMINATION ON DISCHARGE: VITAL SIGNS: Please see below. General Exam: Positive: Alert, Cooperative, Mild Distress Eye Exam: Positive: PERRLA, Conjunctiva & lids normal, EOMI; Negative: Sclera icteric ENT Exam: Positive: Atraumatic, Mucous membr. moist/pink, Pharynx Normal Neck Exam: Positive: Supple; Negative: JVD, thyromegaly Chest Exam: Positive: Clear to auscultation, Normal air movement Heart Exam: Positive: Rate Normal, Regular Rhythm, Normal S1, Normal S2; Negative: Murmurs, Rubs Abdomen Exam: Positive: Normal bowel sounds, Soft, Tenderness (in the epigastrium), Other (no guarding or rigidity) Extremity Exam: Positive: Normal pulses; Negative: Clubbing, Cyanosis, Edema Skin Exam: Positive: Nl turgor and temperature; Negative: Breakdown, Lesion Neuro Exam: Positive: Normal Speech, Strength at 5/5 X4 ext, Normal Tone LABORATORY DATA: Please see below. ACTIVITY: [As tolerated]. DIET: Soft, low fat , low residue DISPOSITION: Home, Self-Care. DISCHARGE INSTRUCTIONS: PMD in 1- 2 weeks DISCHARGE CONDITION: [Stable]. TIME SPENT ON DISCHARGE: 35 minutes. Vital Signs/I&Os Vital Signs Date Time Temp Pulse Resp B/P (MAP) Pulse Ox O2 Delivery O2 Flow Rate FiO2 03/16/20 14:00 98.0 63 18 126/81 (96) 99 Room Air I&O- Last 24 Hours up to 6 AM 03/17/20 07:00 Intake Total 1180 ml Output Total 1000 ml Balance 180 ml Laboratory Data CBC/BMP Item Value Date Time White Blood Count 9.1 10^3/uL 03/16/20 0640 Red Blood Count 4.32 10^6/uL 03/16/20 0640 Hemoglobin 13.0 g/dl L 03/16/20 0640 Hematocrit 39.1 % L 03/16/20 0640 Mean Corpuscular Volume 90.5 fl 03/16/20 0640 Mean Corpuscular Hemoglobin 30.1 pg 03/16/20 0640 Mean Corpuscular Hemoglobin Concent 33.2 g/dl 03/16/20 0640 Red Cell Distribution Width 12.7 % 03/16/20 0640 Platelet Count 189 10^3/uL 03/16/20 0640 Immature Granulocyte % (Auto) 0.2 % 03/16/20 0640 Neutrophils (%) (Auto) 43.6 % 03/16/20 0640 Lymphocytes (%) (Auto) 43.3 % 03/16/20 0640 Monocytes (%) (Auto) 9.9 % H 03/16/20 0640 Eosinophils (%) (Auto) 2.6 % 03/16/20 0640 Basophils (%) (Auto) 0.4 % 03/16/20 0640 Neutrophils # (Auto) 4.0 10^3/uL 03/16/20 0640 Lymphocytes # (Auto) 3.9 10^3/uL 03/16/20 0640 Monocytes # (Auto) 0.9 10^3/uL H 03/16/20 0640 Eosinophils # (Auto) 0.2 10^3/uL 03/16/20 0640 Basophils # (Auto) 0.0 10^3/uL 03/16/20 0640 Nucleated Red Blood Cells % (auto) 0.0 % 03/16/20 0640 Sodium Level 137 MEQ/L 03/16/20 0640 Potassium Level 3.4 MEQ/L L 03/16/20 0640 Chloride Level 102 MEQ/L 03/16/20 0640 Carbon Dioxide Level 27 MEQ/L 03/16/20 0640 Anion Gap 8 MEQ/L 03/16/20 0640 Blood Urea Nitrogen 8 MG/DL 03/16/20 0640 Creatinine 1.08 MG/DL 03/16/20 0640 Glomerular Filtration Rate > 60.0 03/16/20 0640 Fasting Glucose 91 MG/DL 03/16/20 0640 Calcium Level 8.7 MG/DL 03/16/20 0640 Total Bilirubin 0.8 MG/DL 03/12/20 1124 Aspartate Amino Transf (AST/SGOT) 13 U/L 03/12/20 1124 Alanine Aminotransferase (ALT/SGPT) 16 U/L 03/12/20 1124 Alkaline Phosphatase 35 U/L L 03/12/20 1124 Total Protein 6.8 GM/DL 03/12/20 1124 Albumin 3.8 GM/DL 03/12/20 1124 Albumin/Globulin Ratio 1.3 03/12/20 1124 Discharge Medications Scheduled Pantoprazole Sodium (Pantoprazole Sodium) 40 Mg Tablet.dr, 1 TAB PO DAILY Scheduled PRN Ondansetron HCl (Zofran) 4 Mg Tablet, 4 MG PO Q6-8HP PRN for nausea/vomiting Allergies Coded Allergies: No Known Allergies (Unverified , 03/10/20) MARCO ANTONIO CHEUNG MD Mar 17, 2020 07:59
== END 2020-03-16 16:20 | disposition home or self-care (01) | DRG 241 ==
LOC: M ED INP 10:20 → M MS5PR 10:31
PROVIDERS: ADMIT Internal Medicine Nephrology; ATTEND Internal Medicine Nephrology
DX: K29.70 Gastritis, unspecified, without bleeding (principal); A09 Infectious gastroenteritis and colitis, unspecified; E87.6 Hypokalemia; Z79.899 Other long term (current) drug therapy; F17.200 Nicotine dependence, unspecified, uncomplicated